=== PATIENT | male | born 2005 | race Hispanic/Latino ===

== ENCOUNTER 2025-02-14 10:51 | Emergency (ER) | payer OTHER ==
[~2025-02-14] VITALS: Ht 165.1 cm; Wt 90.7 kg
[2025-02-14 10:55] VITALS: TEMP 97.9
[2025-02-14 11:20] LABS: BASOPHILS % 0.3 % (0.0-1.0); EOSINOPHILS % 1.2 % (0.0-6.0); LYMPHOCYTES % 44.2 % (18.0-39.1); MONOCYTES % 6.0 % (4.4-11.3); NEUTROPHILS % 47.6 % (38.7-80.0); RED CELL DISTRIBUTION WIDTH 11.5 % (11.7-14.4)
[2025-02-14] MEDS: KETOROLAC TROMETHAMINE 30 MG/ML VIAL IV STA (11:22)
[2025-02-14] MEDS: SODIUM CHLORIDE 0.9% 1000ML 1,000 ML IV STA (11:22)
[2025-02-14 11:23] LABS: LEUKOCYTE ESTERASE ,URINE NEGATIVE (NEGATIVE); PROTEIN,URINE DIPSTICK NEGATIVE (NEGATIVE)
[2025-02-14 11:24] LABS: URINE UROBILINOGEN 0.2 mg/dL (0.2 - 1)
[2025-02-14 11:38] LABS: EPITHELIAL CELLS,URINE RARE /LPF; WBC,URINE (MAN) 0-5 /HPF (0-5)
[2025-02-14 11:45] LABS: EST GLOMERULAR FILTRATION RATE 96.0 ML/MIN (>=60)
[2025-02-14] MEDS ORDERED: IOPAMIDOL 370 MG/ML 100 ML INFUS..BTL INJ ONE (11:57)
[2025-02-14] MEDS: Morphine 4mg INJECTION 4 MG/ML INJ IV ONE (13:13)
[2025-02-14 15:24] VITALS: PULSE 67; RESP 15; O2SAT 100
== END 2025-02-14 15:20 | disposition home or self-care (01) ==
LOC: ER 11:03
DX: R10.31 Right lower quadrant pain (principal); R31.9 Hematuria, unspecified
CPT/HCPCS: 36415; 74177; 76870; 80053; 81001; 83690; 85025; 93976; 99284; J1885; J2270; J7030; Q9967